=== PATIENT | male | born 1960 | race Caucasian/White ===

== ENCOUNTER 2017-12-02 14:14 | Inpatient (IN) | payer MEDICAID ==
[~2017-12-02] VITALS: Ht 172.7 cm; Wt 80.9 kg
--- NOTE | ~2017-12-02 | PR ---
[place], [place] PROGRESS NOTE NAME: TIFFANIE ZAPATA UNIT #: [id number] ROOM: 312 DOCTOR: ROMY HOOVER MD BIRTHDATE: [birth year] DOS: 12/15/2017 CHIEF COMPLAINT: "Oh, excuse me." SUMMARY OF THE VISIT: The patient was interviewed first as he interrupted me as I was talking to another patient in the quiet room and then later as I approached him as he was sitting in the group therapy room. The patient is still somewhat pressured in his speech, but does slow down and does attempt to interact more appropriately. He is constantly on the go and tends to be moving furniture nonstop, but he does respond to redirection a little better. He is showing a little bit of somnolence, but it is not slowing him down and he was able to sit and eat without difficulty. No other side effects are noted at this time. MENTAL STATUS: He is alert and oriented to person, place and very approximate to time. Mood does seem to be trending towards euthymia. Affect is more appropriate. He is still somewhat hypomanic in his behavior. No gross psychotic symptoms are noted, but he is rather disorganized. Short term memory has gaps. PLAN: I will renew his Ativan p.r.n. in case he requires intervention. I will plan ahead for his next Invega Sustenna injection of 156 mg IM for January 10 and increase his Clozaril to 50 mg twice a day and 200 mg at bedtime to bring the Clozaril into a more therapeutic level. We will continue to engage in individual and perdue milieu activity, planning to discharge then to the least restrictive environment when psychiatrically stable. ROMY HOOVER MD CM:PNTRANS [id number] ROMY HOOVER MD 12/15/17 1332 interface
--- NOTE | ~2017-12-02 | PR ---
[place], [place] PROGRESS NOTE NAME: TIFFANIE ZAPATA UNIT #: [id number] ROOM: 312 DOCTOR: CHRIS MOREJON MD BIRTHDATE: [birth year] DOS: 12/14/2017 SUBJECTIVE: The patient seen and I spoke with the staff. Per staff, the patient is doing well. No behavioral problems or issues. Medication compliant. His ammonia level was 41. He was seen by the medical team. The patient was pleasant and cooperative. He reports doing good. Denied auditory or visual hallucination. He is taking his medication. Did not have any side effect. He reports good sleep and appetite. MENTAL STATUS EXAMINATION: The patient was pleasant, cooperative. Described his mood as "good." Affect, mood congruent. Thought process goal directed. No flight of ideas or loosening of association. He denied auditory or visual hallucination, no delusional, paranoid noted. He denied suicidal ideation, intent or plan. He also denied homicidal ideation, intent or plan. ASSESSMENT: Schizoaffective disorder. PLAN: 1. Continue current medication and care. 2. Continue redirection. 3. Final medication management and discharge planning by the regular team. CHRIS MOREJON MD CM:PNTRANS 40 [phone] CHRIS MOREJON MD 12/14/172229 interface
--- NOTE | ~2017-12-02 | DS ---
[place], [place] DISCHARGE SUMMARY [id number] UNIT #: [id number] ROOM: 312 DOCTOR: ROMY HOOVER MD BIRTHDATE: [birth year] DOS: 12/16/2017 CHIEF COMPLAINT: "[place] [facility] [place] HISTORY OF PRESENT ILLNESS: This is a 57-year-old white male who is a resident of [facility]. The patient was sent to the [facility] because of increasing manic behavior. The patient had not slept for 3 days prior to this admission. He was very bizarre and erratic. He was running out of the jail into traffic. He was also trying to hammer nails into the sidewalk. When attempted to be redirected, he became agitated and aggressive with the jail staff. This is in castillo contrast to his normal behavior where he is described as being rather docile and introverted. Of note, the patient was sent to a local Emergency Room where his urine drug screen tested positive for methamphetamine and opiates. The patient was admitted to the [facility] to rule out organic factors, to re-stabilize on medication, to engage in individual and perdue milieu activities with the ultimate plan to return to the least restrictive environment when psychiatrically stable. PAST MEDICAL HISTORY: Remarkable for osteoarthritis, hypertension, GERD, hyperlipidemia, urinary incontinence and a history of myocardial infarction. SUMMARY OF HOSPITAL COURSE: The patient was admitted to the unit where his trazodone and Thorazine were discontinued due to ineffectiveness. Invega 6 mg in the morning, was started as well as Remeron 15 mg at night. He was maintained initially on Trileptal; however, when the dose came back as therapeutic and he was still symptomatic, the Trileptal was eventually discontinued. Ultimately, Zyprexa was added and the dose was increased to 30 mg a day. Despite the fact that he was receiving Invega and the Zyprexa, the patient remained floridly manic and floridly psychotic. He continued to be intrusive. He exhibited flight of ideas and rapid pressured speech. Eventually, Invega was loaded in Sustenna form 234 mg to improve compliance and also to lessen side effects. Because the Zyprexa was ultimately ineffective, it was discontinued in lieu of Clozaril, which was started at 50 mg twice a day and the dose was gradually stabilized at 50 mg twice a day and 200 mg at bedtime. Depakote was added to act as a mood stabilizer and also to augment the effectiveness of both the Invega and the Clozaril. He tolerated this medication well and did have a gradual improvement to the point where he was no longer frankly manic. He was at times hypomanic, but redirectable. He no longer was pressured. He was able to engage more readily in conversation and attend groups. He was not verbally or physically aggressive in any way. He tolerated the medication regimen well, exhibiting no sedation, somnolence, extrapyramidal symptoms or tardive dyskinesia. He had improved sufficiently by December 16 to return back to the jail to have further monitoring and care. MENTAL STATUS AT DISCHARGE: The patient is alert and oriented with some time gaps. Mood does seem to be more euthymic. Affect more appropriate. He does engage more readily in conversation and he is more understandable. He is not pressured or tangential. There were no gross psychotic symptoms noted. Memory for short term events does have some gaps, but overall he is fully intact. [place], [place] DISCHARGE SUMMARY NAME: TIFFANIE ZAPATA UNIT #: [id number] ROOM: 312 DOCTOR: ROMY HOOVER MD BIRTHDATE: [birth year] FINAL DIAGNOSES AT DISCHARGE: Schizoaffective disorder. PLAN: All of his prescriptions have been printed and will be sent with him. He will return back to [facility] and have followup by his outpatient provider. ROMY HOOVER MD CM:DISCHHERMES 7 9 ROMY HOOVER MD 12/16/17918 interface
--- NOTE | ~2017-12-02 | PR ---
[place], [place] PROGRESS NOTE NAME: TIFFANIE ZAPATA UNIT #: [id number] ROOM: 312 DOCTOR: CHRIS MOREJON MD BIRTHDATE: [birth year] DOS: 12/13/2017 SUBJECTIVE: The patient seen and spoke with the staff. Per staff, the patient was up all night, moving his furniture, somewhat manic. He is compliant with his medication and there is no side effect. His Depakote level came back to 108.9 and all other labs are within normal limit. The patient was pleasant, cooperative. He was in the dining area. He reports doing good. He denied any auditory or visual hallucination, denied any side effect from the medication. He reports good appetite. MENTAL STATUS EXAMINATION: The patient was pleasant and cooperative. Described his mood as "good." Affect was constricted. Thought process is somewhat disorganized. He denied auditory or visual hallucination. No overt delusion or paranoia noted. He denied suicidal ideation, intent or plan. He also denied homicidal ideation, intent or plan. Insight and judgment impaired. ASSESSMENT: Schizoaffective disorder. PLAN: 1. We will increase his bedtime clozapine to 125 mg at night. 2. We will continue other clozapine. 3. We will reduce his Depakote to 500 mg p.o. b.i.d. 4. Continue redirection and supportive care. 5. Encourage activity and groups. CHRIS MOREJON MD CM:PNTRANS [id number] CHRIS MOREJON MD 12/14/17 0036 interface
--- NOTE | ~2017-12-02 | PR ---
[place], [place] PROGRESS NOTE NAME: TIFFANIE ZAPATA UNIT #: [id number] ROOM: 312 DOCTOR: ROMY HOOVER MD BIRTHDATE: [birth year] DOS: 12/12/2017 CHIEF COMPLAINT: "Hey, you have a shirt on." SUMMARY OF THE VISIT: The patient was interviewed in his room. He had previously been seen in the dining room, taking off his shirt. He did require intervention by the perdue milieu staff to help him get dressed again. He continues to be very labile and unpredictable. His speech once again is much more pressured and difficult to understand. As he attempted to engage in conversation with me, I was able to make out about every other word. He is still somewhat silly and inappropriate. He is tolerating the Clozaril well and I see no sedation, somnolence, extrapyramidal symptoms or tardive dyskinesia. MENTAL STATUS: He remains alert and oriented to person, place, not necessarily time. Mood does still seem to be labile. Affect inappropriate. He remains in a mixed state of kemal and there does seem to be some delusions and he does appear to be responding at times to unforeseen others. PLAN: I will increase the Clozaril from 50 mg twice a day to 50 mg twice a day and 100 mg at bedtime. I would like to gradually titrate the Clozaril upwards approximating a dose between 300 and 400 mg a day. Continue to engage in individual and perdue milieu activity with the ultimate plan to return to the least restrictive environment when psychiatrically stable. ROMY HOOVER MD CM:PNTRANS ROMY HOOVER MD 12/12/1746 interface
--- NOTE | ~2017-12-02 | PR ---
[place], [place] PROGRESS NOTE NAME: TIFFANIE ZAPATA UNIT #: [id number] ROOM: 315 DOCTOR: ROMY HOOVER MD BIRTHDATE: [birth year] DOS: 12/06/2017 CHIEF COMPLAINT: "Yeah, my brother is over there and there is a pig there and I don't know what is going on." SUMMARY OF THE VISIT: The patient was interviewed in the dining area. He remains grossly psychotic and very disorganized. He gave me a ramble of nonsensical speech, tying in family members with staff. It did not make much sense. Staff notes that he is not sleeping at night well and he continues to have extreme mood lability and inappropriate behavior. MENTAL STATUS: He is alert and oriented with significant time gaps. Mood remains labile. Affect inappropriate. He is grossly psychotic and delusional. Short term memory has gaps. PLAN: I will discontinue the Cogentin to see if he still requires that for the extrapyramidal symptoms. He has extreme dry mouth and some confusion and I am worried that the Cogentin is exacerbating both of these issues. I will utilize Xero-Lube spray p.r.n. for the dry mouth. I will start him on Latuda 60 mg at bedtime to augment the effectiveness of the primary antipsychotic. I believe the severity of his psychosis and kemal is such that a secondary antipsychotic is warranted. We will engage in individual and perdue milieu activity, returning then to be a retirement or another placement when stable. ROMY HOOVER MD CM:PNTRANS [id number] ROMY HOOVER MD 12/06/17 0937 interface
--- NOTE | ~2017-12-02 | PR ---
[place], [place] PROGRESS NOTE NAME: TIFFANIE ZAPATA UNIT #: [id number] ROOM: 315 DOCTOR: ROMY HOOVER MD BIRTHDATE: [birth year] DOS: 12/04/2017 CHIEF COMPLAINT: "Oh, hi doctor, thank you for breakfast." SUMMARY OF THE VISIT: The patient was interviewed as he sat eating his breakfast in the dining area. He stopped and engaged readily in conversation. He was bright, pleasant and rather engaging. He minimized, however, things that are going on, stating that everything is well. Nurses' on the contrary report states that he has been somewhat labile and has been sexually inappropriate. On multiple times they have found him attempting to enter the hallway with nothing but a sock on his penis. He has been sexually inappropriate towards staff and has had to be redirected on multiple occasions. MENTAL STATUS: He is alert and oriented with significant gaps. Mood seems to be rather labile and he is still unpredictable. There are no overt auditory or visual hallucinations. Short term memory is poor. PLAN: His vitamin D level was low at 11.5, so I will augment with vitamin D 50,000 International Units every . I will discontinue Remeron in lieu of Celexa 20 mg a day to combat the depression as well as to decrease libido and sexual acting out. We will maintain the Invega at its current dose, engage in individual and perdue milieu activity, returning to the least restrictive environment when stable. ROMY HOOVER MD CM:PNTRANS [id number] [id number] ROMY HOOVER MD 12/04/17 1035 interface
--- NOTE | ~2017-12-02 | PR ---
[place], [place] PROGRESS NOTE NAME: TIFFANIE ZAPATA UNIT #: [id number] ROOM: 315 DOCTOR: ROMY HOOVER MD BIRTHDATE: [birth year] DOS: 12/05/2017 CHIEF COMPLAINT: "Oh doctor, "I didn't sleep and then he burst into tears." SUMMARY OF THE VISIT: The patient was interviewed in the dining room. He continues to exhibit a wide swing of emotions, one moment crying inappropriately, the next minute, hyperverbal, intrusive and irritable. Nurses report continued behaviors. He is rating people's rooms and stealing their belongings. He is taking things out of trash, urinating in cups and sticking them in his drawers. He remains very unpredictable and very labile. MENTAL STATUS: He is alert and oriented to self, place, not time. Mood does seem to be labile. Affect inappropriate. He is grossly psychotic and delusional. Memory has some gaps. PLAN: I will go ahead and increase the Invega from 6 mg in the morning to 9 mg in the morning to attempt to impact positively on his psychotic symptoms. I will augment this with Depakote. I do believe that Depakote represents an improvement over the Trileptal, which I will discontinue. I will give Depakote 500 mg 3 times a day and monitor levels. I will also add Rozerem 8 mg at bedtime straight in an effort to get him sleeping to try to break the cycle. I do believe his lack of sleep is also fueling his kemal and disorganization. We will continue to monitor and support, engage in individual and perdue milieu activities, returning to the least restrictive environment when stable. ROMY HOOVER MD CM:PNTRANS 0938 ROMY HOOVER MD 12/05/17 0953 interface
--- NOTE | ~2017-12-02 | PR ---
[place], [place] PROGRESS NOTE NAME: TIFFANIE ZAPATA UNIT #: [id number] ROOM: 312 DOCTOR: ROMY HOOVER MD BIRTHDATE: [birth year] DOS: 12/09/2017 CHIEF COMPLAINT: "I want to go home." SUMMARY OF THE VISIT: The patient was interviewed as he sat in the group therapy room. He engaged readily in conversation and for the first time in a long time he was actually understandable. He was much calmer and more goal oriented in his speaking. He did very clearly request that he be able to go home. When I redirected him to state that this was not going to happen, he took the news very well. He still continues to ramble somewhat from topic to topic and nurses report that he is very busy throughout the day, rearranging furniture constantly. He does respond a little bit better to redirection than he had been previously and the Zyprexa does seem to be impacting positively on his overall behavior and his mood lability. He is tolerating the current medication regimen well and I see no sedation, somnolence, extrapyramidal symptoms or tardive dyskinesia. MENTAL STATUS: He is alert and oriented with some time gaps. Mood does seem to be trending towards euthymia. Affect is more appropriate. The kemal seems to be lessening in intensity. He is still delusional, but this too is lessening. Memory for the most part is intact with some gaps. PLAN: I will go ahead and increase the Zyprexa from a total of 12.5 mg a day to 20 mg a day given in a 10 b.i.d. dosing, renew his Ativan p.r.n. in case he requires p.r.n. intervention. Continue to engage in individual and perdue milieu activity with the plan to return to the least restrictive environment when psychiatrically stable. ROMY HOOVER MD CM:PNTRANS [id number] ROMY HOOVER MD 12/09/17 1041 interface
--- NOTE | ~2017-12-02 | PR ---
[place], [place] PROGRESS NOTE NAME: TIFFANIE ZAPATA UNIT #: [id number] ROOM: 312 DOCTOR: ROMY HOOVER MD BIRTHDATE: [birth year] DOS: 12/11/2017 CHIEF COMPLAINT: "I move my bed, is that okay and then the patient inappropriately laughed." SUMMARY OF THE VISIT: The patient was interviewed in the dining area. He had already completed his breakfast, but was sitting there with a group of other men. He stopped and engaged in conversation, but he is again much more pressured again and hard to understand. This is in castillo contrast to earlier in the week when he seemed to be slowing down some and his speech was much more understandable. He continues to be nonstop on the unit, going from topic to topic and interaction to interaction. He continues to attempt to redirect furniture and has been manipulating his bed as well. He responds briefly to redirection, but then restarts the same behavior over and over again. He is tolerating the current medication regimen well, but there does not seem to be any apparent benefits at this point. MENTAL STATUS: He is alert and oriented. Mood still is wildly labile. Affect is inappropriate. He seems to be very pressured and tangential in his speech. Memory for the most part is intact. PLAN: I will discontinue the oral Invega and load with Invega Sustenna 234 mg IM today. The Zyprexa has been rapidly pushed to 30 mg a day without much positive benefit. So at this point, I will go ahead and discontinue Zyprexa in lieu of Clozaril 50 mg b.i.d. Given the severity of his mood lability and psychosis, I think 2 antipsychotics is warranted and the use of Clozaril at this point is definitely indicated given his lack of response. We will engage in individual and perdue milieu activity, returning to the least restrictive environment when stable. ROMY HOOVER MD CM:PNTRANS 0 9 ROMY HOOVER MD 12/11/17918 interface
--- NOTE | ~2017-12-02 | PR ---
[place], [place] PROGRESS NOTE NAME: TIFFANIE ZAPATA UNIT #: [id number] ROOM: 315 DOCTOR: ROMY HOOVER MD BIRTHDATE: [birth year] DOS: 12/08/2017 CHIEF COMPLAINT: "I need to get over there, see that over here. What are you doing here." SUMMARY OF THE VISIT: The patient was attempted to be interviewed in the dining area. He could not sit still. He was walking in bare feet. I attempted to redirect him to get shoes or socks on and stuff, so that he is not sitting still and is not able to concentrate and focus on anything. He continues to be wildly labile and very inappropriate and intrusive. He has not slept very much if at over the last several days. MENTAL STATUS: He is alert and oriented. He is grossly disorganized and very disjointed in his thinking. He is fragmented. He is pressured, but nonsensical. PLAN: I will discontinue Latuda and Rozerem due to ineffectiveness and start him on Zyprexa 5 mg in the morning and 7.5 mg at night. I would like to consider starting him on Clozaril; however, his white count and neutrophil count is low. I will check a CBC with difficile now to see if this has changed in anyway and will utilize Clozaril as the next option if possible. ROMY HOOVER MD CM:PNTRANS 0940 1001 ROMY HOOVER MD 12/08/17 1001 interface
--- NOTE | ~2017-12-02 | PR ---
[place], [place] PROGRESS NOTE NAME: TIFFANIE ZAPATA UNIT #: [id number] ROOM: 315 DOCTOR: ROMY HOOVER MD BIRTHDATE: [birth year] DOS: 12/07/2017 CHIEF COMPLAINT: "Hey, you are here." SUMMARY OF THE VISIT: The patient was interviewed or attempted to be interviewed as he sat in the quiet room. He had a very hard time sitting still and continue to fidget. His responses were inappropriate. He is pressured and very labile. Many of the patients actually complained about some of his behaviors because he has been so loud and intrusive. MENTAL STATUS: He is alert and oriented to self. Mood still seems wildly labile. Affect is inappropriate. His responses are at times word salad and hard to understand. He is very circumstantial and flighty and continues to be pressured. PLAN: I will double his Latuda from 60-120 mg at bedtime in an effort to attempt to get ahead of the kemal. We will attempt to break the kemal and have him be able to sleep better at night and be able to be more responsive and appropriate. We will engage in individual and perdue milieu activity, returning to the least restrictive environment when stable. ROMY HOOVER MD CM:PNTRANS [phone] [id number] ROMY HOOVER MD 12/07/172131 interface
--- NOTE | ~2017-12-02 | WRIGHTHP ---
[place], [place] PATIENT HISTORY AND PHYSICAL EXAM NAME[id number] UNIT #: [id number] ROOM: 315 DOCTOR: ROMY HOOVER MD BIRTHDATE: [birth year] DOS: 12/03/2017 CHIEF COMPLAINT: "I am [place] [facility] [place] HISTORY OF PRESENT ILLNESS: This is a 57-year-old white male who was sent to the [facility] from his retirement called [facility]. The patient had become increasingly manic there. He had not slept at all for 3 days. He was engaging in very bizarre behavior, very erratic. He was trying to walk into traffic without awareness. He was trying to hammer nails into the sidewalk. When redirected, he became agitated and nearly aggressive. This is in castillo contrast to his normal behavior. The patient was sent to a local emergency room where he did have a urine drug screen that was positive for methamphetamine and opiates. [facility], however, states that they do not feel that this is accurate as the patient apparently is never left unattended and does not have access to drugs or money. The patient in any case is admitted now to rule out organic factors, to stabilize on medication, to engage in individual and perdue milieu activity, returning to the retirement or to the least restrictive environment when stable. PAST MEDICAL HISTORY: Remarkable for osteoarthritis, hypertension, GERD, history of [place], hyperlipidemia, urinary incontinence. MENTAL STATUS: The patient is alert and oriented with time gaps. Mood is wildly labile. He is somewhat hard to understand and he also has a tendency to be somewhat pressured, but redirectable. He is circumstantial and he does have flight of ideas. He seems grossly delusional. DIAGNOSIS: Schizoaffective disorder. PLAN: I have already discontinued his Thorazine, which he was taking 500 mg a day and discontinued his trazodone in lieu of Invega 6 mg in the morning and Remeron 15 mg at night. I will check a Trileptal level in the morning as well to ensure that it is therapeutic. The patient already did sleep well with the Remeron. We will continue to monitor for risk, benefits. Engage in individual and perdue milieu activity, returning then to the least restrictive environment when psychiatrically stable. [place], [place] PATIENT HISTORY AND PHYSICAL EXAM NAME: TIFFANIE ZAPATA UNIT #: [id number] ROOM: [facility] DOCTOR: ROMY HOOVER MD BIRTHDATE: [birth year] ROMY HOOVER MD CM:HISPHYS:PATIENT HISTORY AND PHYSICAL EXAMINATION [id number] ROMY HOOVER MD 12/03/17 1546 interface
--- NOTE | ~2017-12-02 | PR ---
[place], [place] PROGRESS NOTE NAME: TIFFANIE ZAPATA UNIT #: [id number] ROOM: [id number] DOCTOR: ROMY HOOVER MD BIRTHDATE: [birth year] DOS: 12/10/2017 CHIEF COMPLAINT: "The doctor came for my toes." SUMMARY OF THE VISIT: The patient was interviewed as he continued to move around the group therapy room rearranging furniture. He was clear in his thoughts, but still is flighty and tangential for the most part. He is on the edge of exhibiting motor agitation, but does calm and redirect. There is no sedation, somnolence, extrapyramidal symptoms or tardive dyskinesia noted. MENTAL STATUS: He is alert and oriented with some time gaps. Mood is still labile. Affect is inappropriate. He is still somewhat pressured and tangential in his presentation. Memory for the most part is intact with some gaps. PLAN: I will simultaneously increase both the Invega and the Zyprexa, increasing the Invega from 9 mg in the morning to 12 mg in the morning to maximize its effect. I will likewise increase the Zyprexa from 10 mg twice a day to 10 mg in the morning and 20 mg at bedtime to aid sleep and also attempt to break the psychosis and the kemal. We will monitor and support, engage in individual and perdue milieu activity, returning to the least restrictive environment when psychiatrically stable. ROMY HOOVER MD CM:PNTRANS [id number] ROMY HOOVER MD 12/10/17 1256 interface
[2017-12-02] MEDS ORDERED: TRILEPTAL PO (14:20)
[2017-12-02] MEDS ORDERED: OMEPRAZOLE D/R20 MG PO (14:23)
[2017-12-02] MEDS ORDERED: OXYBUTYNIN5 MG PO (14:24)
[2017-12-02] MEDS ORDERED: PRAVASTATIN SOD40 MG PO (14:25)
[2017-12-02] MEDS ORDERED: AMLODIPINE BESY10 MG PO (14:25)
[2017-12-02] MEDS ORDERED: CHLORPROMAZINE100 M1 PO (14:26)
[2017-12-02] MEDS ORDERED: CHLORPROMAZINE200 MG PO (14:27)
[2017-12-02] MEDS ORDERED: BENZTROPINE MESY1 MG PO (14:28)
[2017-12-02] MEDS ORDERED: TRAZODONE100 MG PO (14:28)
[2017-12-02] MEDS ORDERED: MELOXICAM15 MG PO (14:32)
[2017-12-02] MEDS ORDERED: CARBAMIDE15 ML OT (14:32)
[2017-12-02 18:28] VITALS: BP 130/86
[2017-12-02 20:00] VITALS: BP 150/70
[2017-12-02 22:03] VITALS: BP 150/70
[2017-12-03 06:51] LABS: BASO % 0.5 % (0.0-1.0); EOS # 0.2 10*3/uL (0.0-0.4); EOS % 5.2 % (1.0-4.0); HEMATOCRIT 42.8 % (42.0-52.0); HEMOGLOBIN 14.3 g/dl (14.0-18.0); LYMPH # 1.1 10*3/uL (1.3-4.4); LYMPH % 28.5 % (27.0-41.0); MEAN CELL VOLUME 88.2 fl (80.0-94.0); MEAN CORPUSCULAR HGB 29.5 pg (27.0-31.0); MEAN CORPUSCULAR HGB CONC 33.4 g/dl (33.0-37.0); MEAN PLATELET VOLUME 10.2 fl (9.6-12.3); MONO # 0.4 10*3/uL (0.1-1.0); MONO % 9.8 % (3.0-9.0); NEUT # 2.1 10*3/uL (2.3-7.9); NEUT % 55.7 % (47.0-73.0); PLATELET COUNT AUTOMATED 202 10*3/uL (130-400); RED BLOOD COUNT 4.85 10*6/uL (4.50-5.90); RED CELL DISTRI WIDTH 13.1 % (0-14.5); WHITE BLOOD COUNT 3.7 10*3/uL (4.8-10.8)
[2017-12-03 07:10] LABS: BILIRUBIN NEGATIVE (NEGATIVE); BLOOD NEGATIVE (NEGATIVE); CLARITY CLEAR (CLEAR); COLOR YELLOW (YELLOW); GLUCOSE NEGATIVE (NEGATIVE); KETONE 1+ (NEGATIVE); LEUKO ESTERASE NEGATIVE (NEGATIVE); NITRITE NEGATIVE (NEGATIVE); SPECIFIC GRAVITY <= 1.005 (1.005-1.030); UROBILINOGEN 0.2 E.U./dl (0.2-1.0)
[2017-12-03 07:18] LABS: URINE AMPHETAMINES < 1000 (1000ng/ml); URINE BARBITURATES < 200 (200ng/ml); URINE BENZODIAZEPINES < 200 (200ng/ml); URINE CANNABINOIDS (THC) < 50 (50ng/ml); URINE COCAINE < 300 (300ng/ml); URINE METHADONE < 300 (300ng/ml); URINE OPIATES < 300 (300ng/ml)
[2017-12-03 07:20] LABS: URINE PHENCYCLIDINE < 25 (25ng/ml)
[2017-12-03 07:23] LABS: WBC 0-2 wbc/hpf (0-5)
[2017-12-03 07:31] LABS: ALBUMIN 3.9 gm/dl (3.1-4.5); BUN 10 mg/dl (7-24); CHLORIDE 104 mmol/L (98-107); CHOLESTEROL 105 mg/dL (<200); CREATININE 0.77 mg/dL (0.70-1.30); POTASSIUM 3.2 mmol/L (3.5-5.1); SGOT/AST 50 IU/L (3-35); SGPT/ALT 41 U/L (12-78); SODIUM 142 mmol/L (136-145); TOTAL PROTEIN 7.4 gm/dL (6.4-8.2); TRIGLYCERIDES 120 mg/dl (<150); VLDL CHOLESTEROL 24 mg/dL (6-40)
[2017-12-03 07:33] VITALS: BP 136/74
[2017-12-03 07:42] LABS: ALKALINE PHOSPHATASE 89 U/L (45-117); HDL CHOLESTEROL 45 mg/dl (40-60); LDL CHOLESTEROL 36 mg/dL (9-159); THYROID STIM HORMONE (HS) 0.952 uIU/ml (0.358-4.75)
[2017-12-03 10:16] LABS: VITAMIN D, 25-HYDROXY 11.5 ng/mL (30-100)
[2017-12-03 20:00] VITALS: BP 140/88
[2017-12-04 07:40] VITALS: BP 136/86
[2017-12-04 20:59] VITALS: BP 140/87
[2017-12-05 07:44] VITALS: BP 136/86
[2017-12-05 20:00] VITALS: BP 140/88
[2017-12-06 08:17] VITALS: BP 137/89
[2017-12-06 20:14] VITALS: BP 132/76
[2017-12-07 08:07] VITALS: BP 126/87
[2017-12-07 20:00] VITALS: BP 110/70
[2017-12-08 09:12] VITALS: BP 126/84
[2017-12-08 10:33] LABS: BASO % 0.3 % (0.0-1.0); EOS # 0.2 10*3/uL (0.0-0.4); EOS % 2.5 % (1.0-4.0); HEMATOCRIT 40.3 % (42.0-52.0); HEMOGLOBIN 13.6 g/dl (14.0-18.0); LYMPH # 1.5 10*3/uL (1.3-4.4); LYMPH % 24.2 % (27.0-41.0); MEAN CELL VOLUME 88.4 fl (80.0-94.0); MEAN CORPUSCULAR HGB 29.8 pg (27.0-31.0); MEAN CORPUSCULAR HGB CONC 33.7 g/dl (33.0-37.0); MEAN PLATELET VOLUME 10.6 fl (9.6-12.3); MONO # 0.5 10*3/uL (0.1-1.0); MONO % 8.5 % (3.0-9.0); NEUT # 3.9 10*3/uL (2.3-7.9); NEUT % 64.3 % (47.0-73.0); PLATELET COUNT AUTOMATED 275 10*3/uL (130-400); RED BLOOD COUNT 4.56 10*6/uL (4.50-5.90); RED CELL DISTRI WIDTH 13.1 % (0-14.5)
[2017-12-08 20:00] VITALS: BP 135/82
[2017-12-09 08:00] VITALS: BP 128/76
[2017-12-09 20:00] VITALS: BP 137/75
[2017-12-10 08:00] VITALS: BP 135/89
[2017-12-10 20:00] VITALS: BP 138/83
[2017-12-11 07:49] VITALS: BP 136/88
[2017-12-11 20:29] VITALS: BP 131/85
[2017-12-12 08:02] VITALS: BP 138/75
[2017-12-12 20:00] VITALS: BP 124/68
[2017-12-13 07:38] VITALS: BP 135/81
[2017-12-13 11:10] LABS: ALKALINE PHOSPHATASE 94 U/L (45-117); BUN 13 mg/dl (7-24); CHLORIDE 105 mmol/L (98-107); CREATININE 0.82 mg/dL (0.70-1.30); POTASSIUM 3.3 mmol/L (3.5-5.1); SGOT/AST 13 IU/L (3-35); SGPT/ALT 18 U/L (12-78); SODIUM 144 mmol/L (136-145)
[2017-12-13 20:00] VITALS: BP 114/85
[2017-12-14 07:50] VITALS: BP 116/86; BP 138/54
[2017-12-14 20:00] VITALS: BP 129/88
[2017-12-15 07:17] LABS: BASO % 0.2 % (0.0-1.0); EOS # 0.2 10*3/uL (0.0-0.4); EOS % 2.5 % (1.0-4.0); HEMATOCRIT 44.7 % (42.0-52.0); HEMOGLOBIN 14.6 g/dl (14.0-18.0); LYMPH # 1.3 10*3/uL (1.3-4.4); LYMPH % 15.8 % (27.0-41.0); MEAN CORPUSCULAR HGB 29.7 pg (27.0-31.0); MEAN CORPUSCULAR HGB CONC 32.7 g/dl (33.0-37.0); MEAN PLATELET VOLUME 10.3 fl (9.6-12.3); MONO # 0.6 10*3/uL (0.1-1.0); MONO % 6.7 % (3.0-9.0); NEUT # 6.1 10*3/uL (2.3-7.9); NEUT % 74.4 % (47.0-73.0); PLATELET COUNT AUTOMATED 281 10*3/uL (130-400); RED BLOOD COUNT 4.91 10*6/uL (4.50-5.90); RED CELL DISTRI WIDTH 13.2 % (0-14.5); WHITE BLOOD COUNT 8.2 10*3/uL (4.8-10.8)
[2017-12-15 07:46] VITALS: BP 138/80
[2017-12-15 20:00] VITALS: BP 125/83
[2017-12-16 07:52] VITALS: BP 139/88
[2017-12-16] MEDS ORDERED: LACTULOSE20 GM/30 M JT (08:50)
[2017-12-16] MEDS ORDERED: Vitamin D PO (08:50)
[2017-12-16] MEDS ORDERED: CLOZAPINE100 MG PO (08:50)
[2017-12-16] MEDS ORDERED: DIVALPROEX SOD500 MG PO (08:50)
[2017-12-16] MEDS ORDERED: INVEGA SUSTENN156 MG IM (08:50)
[2017-12-16] MEDS ORDERED: BIOTENE MOIST44.3 ML PO (08:50)
[2017-12-16] MEDS ORDERED: CLOZAPINE25 MG PO (08:50)
[2017-12-16] MEDS ORDERED: CITALOPRAM HYDR20 MG PO (08:50)
== END 2017-12-16 15:01 | DRG 885 ==
LOC: 3N 14:14
PROVIDERS: Psychiatry & Neurology Psychiatry
PROC: 0HBRXZZ Excision of Toe Nail, External Approach (ICD-10-PCS; principal; 2017-12-10)
PROC: 0HBRXZZ Excision of Toe Nail, External Approach (ICD-10-PCS; 2017-12-10)
PROC: 0HBRXZZ Excision of Toe Nail, External Approach (ICD-10-PCS; 2017-12-10)
PROC: 0HBRXZZ Excision of Toe Nail, External Approach (ICD-10-PCS; 2017-12-10)
PROC: 0HBRXZZ Excision of Toe Nail, External Approach (ICD-10-PCS; 2017-12-10)
PROC: 0HBRXZZ Excision of Toe Nail, External Approach (ICD-10-PCS; 2017-12-10)
PROC: 0HBRXZZ Excision of Toe Nail, External Approach (ICD-10-PCS; 2017-12-10)
PROC: 0HBRXZZ Excision of Toe Nail, External Approach (ICD-10-PCS; 2017-12-10)
PROC: 0HBRXZZ Excision of Toe Nail, External Approach (ICD-10-PCS; 2017-12-10)
PROC: 0HBRXZZ Excision of Toe Nail, External Approach (ICD-10-PCS; 2017-12-10)
DX: F25.0 Schizoaffective disorder, bipolar type (principal); G93.41 Metabolic encephalopathy; B35.1 Tinea unguium; E78.2 Mixed hyperlipidemia; F16.10 Hallucinogen abuse, uncomplicated; F15.10 Other stimulant abuse, uncomplicated; F23 Brief psychotic disorder; I10 Essential (primary) hypertension; M19.90 Unspecified osteoarthritis, unspecified site; K21.9 Gastro-esophageal reflux disease without esophagitis; Z87.891 Personal history of nicotine dependence; Z81.1 Family history of alcohol abuse and dependence; Z79.899 Other long term (current) drug therapy; Z98.890 Other specified postprocedural states; I25.2 Old myocardial infarction